=== PATIENT | female | born 1995 | race Caucasian/White ===

== ENCOUNTER → 2017-05-11 | Outpatient (REF) | payer OTHER ==
[2017-05-11 15:48] LABS: CHLAMYDIA DNA AMPLIFICATION NEGATIVE (NEGATIVE); GC DNA AMPLIFICATION NEGATIVE (NEGATIVE)
== END ==
LOC: M SFHCWAGY 12:02
DX: N93.0 Postcoital and contact bleeding (principal); N92.6 Irregular menstruation, unspecified; Z12.4 Encounter for screening for malignant neoplasm of cervix

== ENCOUNTER → 2017-08-23 | Outpatient (REF) | payer OTHER ==
[2017-08-23 21:18] LABS: CHLAMYDIA DNA AMPLIFICATION NEGATIVE (NEGATIVE); GC DNA AMPLIFICATION NEGATIVE (NEGATIVE)
== END ==
LOC: M SFHCWAGY 17:11
DX: R10.32 Left lower quadrant pain (principal)
CPT/HCPCS: 87591

== ENCOUNTER → 2017-12-27 | Outpatient (CLI) | payer OTHER ==
[2017-12-27 13:41] LABS: BASO % 0.3 % (0.0-1.0); EOS # 0.1 10^3/uL (0.0-0.50); EOS % 1.5 % (0.0-3.0); HEMATOCRIT 38.5 % (36.0-47.0); HEMOGLOBIN 13.3 g/dl (12.0-15.5); IMMATURE GRANULOCYTE % 0.2 % (0-3.0); LYMPH # 1.8 10^3/uL (1.5-6.5); MEAN CORPUSCULAR HEMOGLOBIN 30.6 pg (27.0-33.0); MEAN CORPUSCULAR HGB CONC 34.5 g/dl (32.0-36.5); MEAN CORPUSCULAR VOLUME 88.7 fl (80.0-96.0); MONO # 0.5 10^3/uL (0.0-0.8); MONO % 7.4 % (0.0-5.0); NEUTROPHILS # 3.7 10^3/uL (1.8-7.7); NEUTROPHILS % 60.6 % (36.0-66.0); PLATELET COUNT, AUTOMATED 300 10^3/uL (150-450); RED BLOOD COUNT 4.34 10^6/uL (4.00-5.40); RED CELL DISTRIBUTION WIDTH 11.9 % (11.5-14.5); WHITE BLOOD COUNT 6.1 10^3/uL (4.0-10.0)
[2017-12-27 14:32] LABS: FREE T4 1.05 NG/DL (0.76-1.46); HBsAg Prenatal NEGATIVE (NEGATIVE); RUBELLA IgG QUALITATIVE IMMUNE (IMMUNE); TOTAL 25(OH) VITAMIN D 14.8 NG/ML (30.0-100.0)
[2017-12-27 14:38] LABS: HEPATITIS C VIRUS ABY INDEX < 0.0 INDEX (<0.8)
[2017-12-27 14:39] LABS: HIV 1&2 SCREEN CENTAUR NEGATIVE (NEGATIVE)
== END ==
LOC: M SMT 10:35
DX: Z36.89 Encounter for other specified antenatal screening (principal)
CPT/HCPCS: 84443

== ENCOUNTER 2018-01-17 09:29 | Emergency (ER) | payer OTHER ==
[2018-01-17 10:04] LABS: BASO % 0.4 % (0.0-1.0); EOS # 0.1 10^3/uL (0.0-0.50); EOS % 1.1 % (0.0-3.0); HEMATOCRIT 38.1 % (36.0-47.0); HEMOGLOBIN 13.4 g/dl (12.0-15.5); IMMATURE GRANULOCYTE % 0.2 % (0-3.0); LYMPH # 2.2 10^3/uL (1.5-6.5); MEAN CORPUSCULAR HEMOGLOBIN 31.4 pg (27.0-33.0); MEAN CORPUSCULAR HGB CONC 35.2 g/dl (32.0-36.5); MEAN CORPUSCULAR VOLUME 89.2 fl (80.0-96.0); MONO # 0.5 10^3/uL (0.0-0.8); NEUTROPHILS # 5.2 10^3/uL (1.8-7.7); NEUTROPHILS % 65.3 % (36.0-66.0); PLATELET COUNT, AUTOMATED 311 10^3/uL (150-450); RED BLOOD COUNT 4.27 10^6/uL (4.00-5.40); RED CELL DISTRIBUTION WIDTH 12.1 % (11.5-14.5)
[2018-01-17 10:51] LABS: ANION GAP 6 MEQ/L (8-16); BLOOD UREA NITROGEN 9 MG/DL (7-18); CALCIUM LEVEL 8.9 MG/DL (8.5-10.1); CARBON DIOXIDE LEVEL 26 MEQ/L (21-32); CHLORIDE LEVEL 106 MEQ/L (98-107); CREATININE FOR GFR 0.63 MG/DL (0.55-1.30); GLOMERULAR FILTRATION RATE > 60.0 (>60); GLUCOSE, FASTING 87 MG/DL (70-100); HCG, SERUM QUANTITATIVE 4948 MIU/ML; POTASSIUM SERUM 3.9 MEQ/L (3.5-5.1); SODIUM LEVEL 138 MEQ/L (136-145)
[2018-01-17 11:29] LABS: APPEARANCE, URINE HAZY (CLEAR); BACTERIA, URINE AUTO 1+ (NEGATIVE); BILIRUBIN, URINE AUTO NEGATIVE (NEGATIVE); BLOOD, URINE BLOOD 3+ (NEGATIVE); COLOR, URINE YELLOW (YELLOW); GLUCOSE, URINE (UA) AUTO NEGATIVE (NEGATIVE); KETONE, URINE AUTO 1+ mg/dL (NEGATIVE); LEUKOCYTE ESTERASE, URINE AUTO NEGATIVE (NEGATIVE); MUCUS, URINE SMALL (NEGATIVE); NITRITE, URINE AUTO NEGATIVE (NEGATIVE); PROTEIN, URINE AUTO 1+ mg/dL (NEGATIVE); RBC, URINE AUTO 139 /HPF (0-3); SPECIFIC GRAVITY URINE AUTO 1.027 (1.002-1.035); SQUAMOUS EPITHELIAL CELL UR AU 2 /HPF (0-6); WBC, URINE AUTO 6 /HPF (0-3)
== END 2018-01-17 12:30 | disposition home or self-care (01) ==
LOC: M ED 09:29
DX: O20.0 Threatened abortion (principal); Z3A.09 9 weeks gestation of pregnancy; O99.341 Other mental disorders complicating pregnancy, first trimester; F33.9 Major depressive disorder, recurrent, unspecified; F41.9 Anxiety disorder, unspecified; Z88.0 Allergy status to penicillin; O99.331 Smoking (tobacco) complicating pregnancy, first trimester; F17.210 Nicotine dependence, cigarettes, uncomplicated
CPT/HCPCS: 76801

== ENCOUNTER 2018-01-19 19:49 | Emergency (ER) | payer OTHER ==
[2018-01-19 21:26] LABS: BASO % 0.2 % (0.0-1.0); EOS # 0.1 10^3/uL (0.0-0.50); EOS % 0.7 % (0.0-3.0); HEMATOCRIT 36.6 % (36.0-47.0); HEMOGLOBIN 12.7 g/dl (12.0-15.5); IMMATURE GRANULOCYTE % 0.4 % (0-3.0); LYMPH # 1.1 10^3/uL (1.5-6.5); LYMPH % 10.6 % (24.0-44.0); MEAN CORPUSCULAR HEMOGLOBIN 30.8 pg (27.0-33.0); MEAN CORPUSCULAR HGB CONC 34.7 g/dl (32.0-36.5); MEAN CORPUSCULAR VOLUME 88.6 fl (80.0-96.0); MONO # 0.6 10^3/uL (0.0-0.8); MONO % 5.4 % (0.0-5.0); NEUTROPHILS # 8.8 10^3/uL (1.8-7.7); NEUTROPHILS % 82.7 % (36.0-66.0); PLATELET COUNT, AUTOMATED 248 10^3/uL (150-450); RED BLOOD COUNT 4.13 10^6/uL (4.00-5.40); RED CELL DISTRIBUTION WIDTH 12.1 % (11.5-14.5); WHITE BLOOD COUNT 10.6 10^3/uL (4.0-10.0)
[2018-01-19 22:06] LABS: ANION GAP 8 MEQ/L (8-16); BLOOD UREA NITROGEN 7 MG/DL (7-18); CALCIUM LEVEL 8.2 MG/DL (8.5-10.1); CARBON DIOXIDE LEVEL 24 MEQ/L (21-32); CHLORIDE LEVEL 109 MEQ/L (98-107); CREATININE FOR GFR 0.58 MG/DL (0.55-1.30); GLOMERULAR FILTRATION RATE > 60.0 (>60); GLUCOSE, FASTING 89 MG/DL (70-100); HCG, SERUM QUANTITATIVE 1574 MIU/ML; POTASSIUM SERUM 3.9 MEQ/L (3.5-5.1); SODIUM LEVEL 141 MEQ/L (136-145)
[2018-01-19 23:15] LABS: CHLAMYDIA DNA AMPLIFICATION NEGATIVE (NEGATIVE); GC DNA AMPLIFICATION NEGATIVE (NEGATIVE)
== END 2018-01-19 23:13 | disposition home or self-care (01) ==
LOC: M ED 19:49
DX: O03.4 Incomplete spontaneous abortion without complication (principal); O99.341 Other mental disorders complicating pregnancy, first trimester; F41.9 Anxiety disorder, unspecified; F32.9 Major depressive disorder, single episode, unspecified; O99.331 Smoking (tobacco) complicating pregnancy, first trimester; F17.210 Nicotine dependence, cigarettes, uncomplicated; Z88.0 Allergy status to penicillin
CPT/HCPCS: 76801

== ENCOUNTER → 2018-01-25 | Outpatient (CLI) | payer OTHER ==
[2018-01-25 19:21] LABS: HCG, SERUM QUANTITATIVE 141 MIU/ML
== END ==
LOC: M SMT 10:10
DX: O03.9 Complete or unspecified spontaneous abortion without complication (principal)
CPT/HCPCS: 84702

== ENCOUNTER → 2018-02-02 | Outpatient (CLI) | payer OTHER ==
[2018-02-02 14:41] LABS: HCG, SERUM QUANTITATIVE 28 MIU/ML
== END ==
LOC: M SMT 11:19
DX: O03.9 Complete or unspecified spontaneous abortion without complication (principal)
CPT/HCPCS: 84702

== ENCOUNTER → 2018-06-01 | Outpatient (REF) | payer OTHER ==
[2018-06-04 14:43] LABS: HPV HYBRID CAPTURE II Negative (Negative)
== END ==
LOC: M LAB REF 13:39
PROVIDERS: ATTEND Advanced Practice Midwife
DX: Z12.4 Encounter for screening for malignant neoplasm of cervix (principal)

== ENCOUNTER → 2018-06-01 | Outpatient (REF) | payer OTHER ==
[2018-06-01 16:43] LABS: CHLAMYDIA DNA AMPLIFICATION NEGATIVE (NEGATIVE); GC DNA AMPLIFICATION NEGATIVE (NEGATIVE)
== END ==
LOC: M LAB REF 13:15
PROVIDERS: ATTEND Advanced Practice Midwife
DX: Z11.3 Encounter for screening for infections with a predominantly sexual mode of transmission (principal)

== ENCOUNTER → 2018-09-07 | Outpatient (CLI) | payer OTHER ==
[2018-09-07 20:07] LABS: HCG, SERUM QUALITATIVE NEGATIVE (NEGATIVE)
== END ==
LOC: M SMT 15:53
PROVIDERS: ATTEND Advanced Practice Midwife
DX: N91.1 Secondary amenorrhea (principal)

== ENCOUNTER → 2019-01-26 | Outpatient (CLI) | payer OTHER ==
[2019-01-27 10:27] LABS: HEPATITIS B SURFACE ANTIGEN NEGATIVE (NEGATIVE)
[2019-01-27 10:52] LABS: HEPATITIS C VIRUS ABY INDEX 0.1 INDEX (<0.8)
[2019-01-27 10:53] LABS: HEPATITIS B CORE ANTIBODY IGM NEGATIVE (NEGATIVE); HIV 1&2 SCREEN CENTAUR NEGATIVE (NEGATIVE)
[2019-01-27 10:55] LABS: HEPATITIS A ANTIBODY IGM NEGATIVE (NEGATIVE)
[2019-01-27 13:31] LABS: CHLAMYDIA DNA AMPLIFICATION NEGATIVE (NEGATIVE); GC DNA AMPLIFICATION NEGATIVE (NEGATIVE)
== END ==
LOC: M PLALAB 16:01
PROVIDERS: ATTEND Advanced Practice Midwife
DX: Z11.3 Encounter for screening for infections with a predominantly sexual mode of transmission (principal)

== ENCOUNTER → 2019-02-01 | Outpatient (CLI) | payer OTHER ==
--- NOTE | 2019-02-01 14:50 | REP ---
PELVIC ULTRASOUND: Real-time sonographic evaluation of the pelvis is performed utilizing transabdominal and endovaginal technique. The bladder measures 9.2 x 8.7 x 5.6 cm. Uterus measures 7.8 x 3.5 x 4.1 cm. Endometrial thickness is 10 mm with no endometrial fluid collection. Right ovary measures 2.6 x 3.2 x 3.9 cm and left ovary 3.2 x 2.1 x 3.0 cm. Thick-walled cystic structure in the right ovary measures 1.6 cm in maximum diameter compatible with a dominant complex follicle. No torsion is seen of either ovary with duplex Doppler evaluation. There is no other evidence of adnexal mass. Trace physiologic free fluid is seen. IMPRESSION: Endometrial thickness 10 mm with no endometrial fluid collection. Complex dominant follicle right ovary 1.6 cm in diameter. No other significant finding. Unreviewed
--- NOTE | 2019-02-01 15:01 | REP ---
ULTRASOUND RIGHT BREAST: HISTORY: Palpable lump 12-o'clock to 1-o'clock. Real-time sonographic evaluation of the right breast performed in the region of 12-o'clock to 1-o'clock at the site of the reported palpable abnormality. There is dense fibroglandular tissue in this region without a discrete cystic or solid mass. IMPRESSION: ACR 2 benign. No cystic or solid mass identified in the region of the palpable lump right breast between 12-o'clock and 1-o'clock. Clinical correlation and followup is recommended. Unreviewed
== END ==
LOC: M RAD 13:21
PROVIDERS: ATTEND Advanced Practice Midwife
DX: N60.01 Solitary cyst of right breast (principal); N92.6 Irregular menstruation, unspecified

== ENCOUNTER → 2019-02-23 | Outpatient (CLI) | payer OTHER | LOC: M RAD 13:32 | PROVIDERS: ATTEND Surgery | DX: Z53.9 Procedure and treatment not carried out, unspecified reason (principal) ==

== ENCOUNTER → 2019-03-01 | Outpatient (CLI) | payer OTHER ==
--- NOTE | 2019-03-02 11:53 | REP ---
Digital diagnostic unilateral right breast mammography with CAD, 3-D tomography, and focused right breast sonography. History: Lump in the right breast, possible lump in the right axilla. No comparison mammography. Comparison sonography February 01, 2019. Mammographic findings: A skin marker is affixed to the skin at the site of the palpable lump. Routine mammographic views are acquired along with laterally exaggerated craniocaudal view and 3-D tomography. Breast parenchyma is heterogeneously hyperdense in a pattern which may inhibit the sensitivity of mammography. No mass lesion is visible mammographically. No architectural distortion or microcalcification is seen. No worrisome skin change is seen. 3-D tomography images show no additional abnormality. Sonographic findings: The breast is scanned about the 12 o'clock position at the site of the palpable lump. Heterogeneous fibroglandular background echotexture is seen. No cyst or mass is observed. No acoustic shadowing is seen. Right axillary sonography shows two normal-sized lymph nodes measuring 1.3 x 1.2 x 0.7 cm and 0.9 x 0.7 x 0.4 cm. These both have preserved echogenic central hilar fat in this thin cortical margin. No other sonographic finding. Impression: BIRADS 2: BI-RADS/ACR category 2 mammogram. Benign Findings. Clinical followup is advised. This mammogram was interpreted with the aid of an FDA-approved computer-aided detection system. The patient states she had a clinical breast exam in January 2019. The patient letter being requested is m2 dense. This patient's estimated Tyrer-Cuzick lifetime risk assessment for the breast cancer is 22.7 %. Enhanced screening in the form of annual bilateral breast MRI scanning may well be warranted.
== END ==
LOC: M WHC 12:51
PROVIDERS: ATTEND Surgery
DX: R22.31 Localized swelling, mass and lump, right upper limb (principal); N63.10 Unspecified lump in the right breast, unspecified quadrant
CPT/HCPCS: 76642; 77065; G0279

== ENCOUNTER → 2020-05-01 | Outpatient (REF) | payer OTHER ==
[2020-05-01 15:54] LABS: HEMOGLOBIN 14.3 g/dl (12.0-15.5); MEAN CORPUSCULAR HEMOGLOBIN 31.1 pg (27.0-33.0); MEAN CORPUSCULAR VOLUME 91.3 fl (80.0-96.0); PLATELET COUNT, AUTOMATED 341 10^3/uL (150-450); WHITE BLOOD COUNT 7.8 10^3/uL (4.0-10.0)
[2020-05-02 12:08] LABS: HIV 1&2 SCREEN CENTAUR NEGATIVE (NEGATIVE)
[2020-05-03 13:00] LABS: HEPATITIS C VIRUS ABY INDEX < 0.0 INDEX (<0.8)
== END ==
LOC: M PLALAB 10:26
PROVIDERS: ATTEND Advanced Practice Midwife
DX: O99.331 Smoking (tobacco) complicating pregnancy, first trimester (principal); F17.200 Nicotine dependence, unspecified, uncomplicated

== ENCOUNTER → 2020-07-12 | Outpatient (CLI) | payer OTHER ==
--- NOTE | 2020-07-12 14:33 | REP ---
INDICATION: ANATOMY JUHI 12/06/20. COMPARISON: None TECHNIQUE: Transabdominal FINDINGS: Multiple ultrasonographic images of the gravid uterus shows a single living intrauterine gestation in the cephalic presentation. Doppler interrogation of the heart shows a heart rate of 149 beats per minute. Doppler interrogation of the umbilical artery was not obtained. The placenta is posterior not low lying. The cervix measures 5.8 cm in length and is closed. The subjective amniotic fluid volume is within normal limits. anatomical structures seen to be unremarkable are as follows: Thalami, cavum septum pellucidum, cerebellum, cisterna magna, cerebral ventricles, spine, urinary bladder, stomach, upper lower extremities, and left ventricular outflow tract. Structures suboptimally visualized are as follow: Four-chamber heart, kidneys, right ventricular outflow tract, and upper lip. BPD: 4.4 cm 19 weeks 3 days HC: 16.3 cm 19 weeks 0 days AC: 14.0 cm 19 weeks 3 days FL: 2.9 cm 19 weeks 0 days The estimated weight is 279 g. No percentile was calculated by the performing technologist. IMPRESSION: Single living intrauterine gestation as described above with an estimated gestational age of 19 weeks 1 day via composite criteria and an estimated date of delivery of 12/05/2020 by today's exam. No anomalies were detected, however, I recommend a follow-up examination to better visualize those structures not well seen today as described above. <Electronically signed by Philip Bunn > 07/12/20 [id number]
== END ==
LOC: M WHC 12:57
PROVIDERS: ATTEND Advanced Practice Midwife
DX: O99.332 Smoking (tobacco) complicating pregnancy, second trimester (principal); Z3A.19 19 weeks gestation of pregnancy

== ENCOUNTER → 2020-08-15 | Outpatient (CLI) | payer OTHER ==
--- NOTE | 2020-08-15 16:06 | REP ---
INDICATION: F/U ANATOMY. COMPARISON: Comparison study July 12, 2020.. TECHNIQUE: Transabdominal obstetric sonography. FINDINGS: Scanning through the gravid uterus demonstrates a viable single intrauterine gestation in cephalic lie. motion is observed and heart rate is recorded at 147 beats per minute. A posterior placenta is seen, grade 1, without evidence of placenta previa. Closed cervical length is measured at 3.8 cm transabdominally. No extrauterine abnormality is observed. Amniotic fluid is subjectively normal. The following anatomic structures are identified felt to be unremarkable: Four-chamber heart, left and right ventricular outflow tract views, kidneys, and nose and lips. In conjunction with the prior study, anatomic survey is felt to be complete. Biometry chart: BPD 5.9 cm, 24 weeks 2 days Head circumference 21.4 cm, 23 weeks 3 days Abdominal circumference 19.3 cm, 24 weeks 0 days Femur length 4.2 cm, 23 weeks 5 days Humeral length 4.0 cm, 24 weeks 1 day HC AC ratio normal 1.11 Cephalic index normal 0.78 Estimated weight 635 g, 1 lb 6 oz, 41st percentile for 23 weeks 6 days IMPRESSION: Viable single intrauterine gestation at 23 weeks 6 days by today's composite sonographic criteria. JUHI by today's sonography December 06, 2020. No complication identified. Expected gestational age estimate based on known JUHI of 06 December 2020 is 23 weeks 6 days. <Electronically signed by Jasen Larkin > 08/15/20 1202
== END ==
LOC: M WHC 12:22
PROVIDERS: ATTEND Advanced Practice Midwife
DX: O99.332 Smoking (tobacco) complicating pregnancy, second trimester (principal)

== ENCOUNTER 2020-08-17 00:28 | Outpatient (CLI) | payer OTHER ==
[~2020-08-17] VITALS: Ht 162.6 cm; Wt 62.3 kg
[2020-08-17 00:40] VITALS: BP 122/71
--- NOTE | 2020-08-17 01:29 | IPNPDOC ---
Text Note Date of Service The patient was seen on 08/17/20. NOTE Outpatient 24yo JUHI 12/06/2020 presents from [facility] @ 24w0d with complaints of LLQ cramping and discomfort for 2 days. Denies LOF, bleeding. Reports good movement. No apparent distress FH reassuring via doppler No UC on monitor. Abdomen soft, gravid. Tender to palpation over bladder and along left groin SVE LTC, OOP UA at [place] concentrated, turbid Discussed round ligament discomfort, ways to avoid and treatment Urine C&S sent Enc increased hydration to reduce bladder and ligament discomfort. Enc good body mechanics, support belt and shoes. Discharged home. Keep appt next week Felecia Camp CNM Aug 17, 2020 01:29
== END 2020-08-17 01:25 | disposition home or self-care (01) ==
LOC: M LDO 00:28
PROVIDERS: ATTEND Advanced Practice Midwife
DX: O26.892 Other specified pregnancy related conditions, second trimester (principal); Z3A.24 24 weeks gestation of pregnancy; R25.2 Cramp and spasm

== ENCOUNTER 2020-09-10 15:50 | Outpatient (CLI) | payer OTHER ==
[~2020-09-10] VITALS: Ht 162.6 cm; Wt 64.3 kg
[2020-09-10] MEDS ORDERED: ACET-907 PO (16:05)
[2020-09-10 16:08] VITALS: BP 107/64
[2020-09-10 16:47] VITALS: BP 130/75
--- NOTE | 2020-09-10 17:43 | IPNPDOC ---
Text Note Date of Service The patient was seen on 09/10/20. NOTE S: 24 yo female at 27 4/7 weeks by 8 week ultrasound presents with c/o LLQ pain intermittently for 1 day. no bleeding. good movement. O: AVSS NAD Abd: NT, gravid, soft FHT: Cat. I toco: irregular, mild SVE cx: L/C/P A/P 24 yo female at 27 4/7 weeks gestation with ligament pain, no evidence of labor Pt reassured recommended oral hydration, pelvic rest f-u office as scheduled. VS,Fishbone, I+O VS, Fishbone, I+O Vital Signs Date Time Temp Pulse Resp B/P (MAP) Pulse Ox O2 Delivery O2 Flow Rate FiO2 09/10/20 16:08 97.4 88 107/64 (78) PRAVIN STALEY MD Sep 10, 2020 17:43
[2020-09-10 17:44] VITALS: BP 128/77
== END 2020-09-10 17:46 | disposition home or self-care (01) ==
LOC: M LDO 15:50
PROVIDERS: ATTEND Specialist
DX: O26.892 Other specified pregnancy related conditions, second trimester (principal); R10.32 Left lower quadrant pain; Z3A.27 27 weeks gestation of pregnancy; Z88.0 Allergy status to penicillin

== ENCOUNTER 2020-09-17 13:18 | Outpatient (CLI) | payer OTHER ==
[~2020-09-17] VITALS: Ht 162.6 cm; Wt 66.0 kg
[~2020-09-17 13:18] MED LIST: ACET-907 PO
[2020-09-17 13:34] VITALS: BP 118/66
[2020-09-17 13:51] VITALS: BP 103/58
--- NOTE | 2020-09-17 14:16 | IPNPDOC ---
Obstetrical Progress Note Date of Service Sep 17, 2020 Subjective 24-year-old -0-1-0 at 28+4 weeks gestation. Came in with concerns of decreased movement over the past 24 hours. She denies any vaginal bleeding loss of fluid or uterine contractions. Since being evaluated in triage she has now been feeling movement on a frequent basis. course complicated by anxiety/depression/bipolar disorder, formerly on Prozac 20 mg. She is also a smoker. No changes to her history see record Vitals: Normotensive normal heart rate afebrile Abdomen soft nontender nondistended uterine fundal height is consistent with dates and nontender Extremities nonedematous nontender Ultrasound limited: Max vertical pocket 5.3 cm, cephalic presentation, + movement EFM: Category 1, reactive, no decelerations, moderate variability present [place]: No contractions detected A/P: 24-year-old -0-1-0 at 28+4 weeks gestation. Reassuring modified BPP. Reassuring maternal status. -Routine third trimester precautions were reviewed -Follow-up in the office as scheduled Rachel Booker DO Objective Vital Signs Date Time Temp Pulse Resp B/P (MAP) Pulse Ox O2 Delivery O2 Flow Rate FiO2 09/17/20 13:34 97.6 142 20 118/66 (83) GLENN BOOKER DO Sep 17, 2020 14:16
== END 2020-09-17 14:10 | disposition home or self-care (01) ==
LOC: M LDO 13:18
PROVIDERS: ATTEND Obstetrics & Gynecology
DX: O36.8130 Decreased fetal movements, third trimester, not applicable or unspecified (principal); Z3A.28 28 weeks gestation of pregnancy; O99.333 Smoking (tobacco) complicating pregnancy, third trimester; F17.210 Nicotine dependence, cigarettes, uncomplicated; O99.343 Other mental disorders complicating pregnancy, third trimester; F41.9 Anxiety disorder, unspecified; F31.9 Bipolar disorder, unspecified; Z88.0 Allergy status to penicillin

== ENCOUNTER → 2020-09-19 | Outpatient (CLI) | payer OTHER ==
[2020-09-19 17:38] LABS: HEMATOCRIT 37.6 % (36.0-47.0); HEMOGLOBIN 12.2 g/dl (12.0-15.5); MEAN CORPUSCULAR HEMOGLOBIN 31.6 pg (27.0-33.0); MEAN CORPUSCULAR HGB CONC 32.4 g/dl (32.0-36.5); MEAN CORPUSCULAR VOLUME 97.4 fl (80.0-96.0); PLATELET COUNT, AUTOMATED 410 10^3/uL (150-450); RED BLOOD COUNT 3.86 10^6/uL (4.00-5.40); WHITE BLOOD COUNT 11.2 10^3/uL (4.0-10.0)
== END ==
LOC: M PLALAB 13:32
PROVIDERS: ATTEND Advanced Practice Midwife
DX: O99.332 Smoking (tobacco) complicating pregnancy, second trimester (principal); Z3A.00 Weeks of gestation of pregnancy not specified

== ENCOUNTER → 2020-11-19 | Outpatient (REF) | payer OTHER | LOC: M SFHCWAGY 13:11 | PROVIDERS: ATTEND Advanced Practice Midwife | DX: Z34.83 Encounter for supervision of other normal pregnancy, third trimester (principal) ==

== ENCOUNTER → 2021-05-08 | Outpatient (REF) | payer OTHER ==
[~2021-05-08] MED LIST changes: +IBUP80TA PO; +PERCOCET PO
== END ==
LOC: M SFHCWAGY 16:57
PROVIDERS: ATTEND Obstetrics & Gynecology
DX: Z12.4 Encounter for screening for malignant neoplasm of cervix (principal)

== ENCOUNTER → 2021-09-09 | Outpatient (CLI) | payer OTHER ==
[2021-09-09 15:38] LABS: HEMATOCRIT 39.3 % (36.0-47.0); HEMOGLOBIN 13.1 g/dl (12.0-15.5); MEAN CORPUSCULAR HEMOGLOBIN 29.4 pg (27.0-33.0); MEAN CORPUSCULAR HGB CONC 33.3 g/dl (32.0-36.5); MEAN CORPUSCULAR VOLUME 88.1 fl (80.0-96.0); PLATELET COUNT, AUTOMATED 374 10^3/uL (150-450); RED BLOOD COUNT 4.46 10^6/uL (4.00-5.40); WHITE BLOOD COUNT 8.8 10^3/uL (4.0-10.0)
[2021-09-09 16:38] LABS: HEPATITIS C VIRUS ABY INDEX 0.1 INDEX (<0.8); HIV 1&2 SCREEN CENTAUR NEGATIVE (NEGATIVE)
[2021-09-09 17:14] LABS: GC DNA AMPLIFICATION NEGATIVE (NEGATIVE)
== END ==
LOC: M PLALAB 13:36
PROVIDERS: ATTEND Advanced Practice Midwife
DX: Z34.91 Encounter for supervision of normal pregnancy, unspecified, first trimester (principal)

== ENCOUNTER 2021-11-07 17:16 | Outpatient (CLI) | payer OTHER ==
[~2021-11-07] VITALS: Ht 162.6 cm; Wt 57.0 kg
[2021-11-07] MEDS ORDERED: LR 1,000 ML IV SCH (17:20)
[2021-11-07] MEDS ORDERED: PROMETHAZINE 25MG/ML 1ML VIAL IV PRN (17:20)
[2021-11-07] MEDS ORDERED: LACTATED RINGER'S 1000 ML IV STA (17:20)
[2021-11-07 17:28] VITALS: BP 95/55
[2021-11-07] MEDS ORDERED: HOME MED LIST COMPLETE! XX SCH (17:45)
[2021-11-07 17:54] LABS: HEMATOCRIT 32.6 % (36.0-47.0); MEAN CORPUSCULAR HEMOGLOBIN 30.8 pg (27.0-33.0); MEAN CORPUSCULAR HGB CONC 33.7 g/dl (32.0-36.5); MEAN CORPUSCULAR VOLUME 91.3 fl (80.0-96.0); PLATELET COUNT, AUTOMATED 263 10^3/uL (150-450); RED BLOOD COUNT 3.57 10^6/uL (4.00-5.40); WHITE BLOOD COUNT 5.1 10^3/uL (4.0-10.0)
[2021-11-07 18:42] VITALS: BP 99/63
[2021-11-07 19:35] VITALS: BP 140/82
[2021-11-07 20:58] VITALS: BP 107/58
== END 2021-11-07 21:01 | disposition home or self-care (01) ==
LOC: M LDO 17:16
PROVIDERS: ATTEND Obstetrics & Gynecology
DX: O21.8 Other vomiting complicating pregnancy (principal); O98.512 Other viral diseases complicating pregnancy, second trimester; U07.1 COVID-19; Z3A.19 19 weeks gestation of pregnancy
CPT/HCPCS: 59025; 85027; 87635; 96374; J2550

== ENCOUNTER → 2021-12-19 | Outpatient (CLI) | payer BC, MEDICAID | LOC: M WHC 14:53 | PROVIDERS: ATTEND Obstetrics & Gynecology | DX: O34.211 Maternal care for low transverse scar from previous cesarean delivery (principal) ==

== ENCOUNTER → 2022-01-07 | Outpatient (CLI) | payer BC, OTHER ==
[2022-01-07 14:55] LABS: HEMOGLOBIN 12.1 g/dl (12.0-15.5); MEAN CORPUSCULAR HEMOGLOBIN 31.5 pg (27.0-33.0); MEAN CORPUSCULAR HGB CONC 32.7 g/dl (32.0-36.5); MEAN CORPUSCULAR VOLUME 96.4 fl (80.0-96.0); PLATELET COUNT, AUTOMATED 357 10^3/uL (150-450); RED BLOOD COUNT 3.84 10^6/uL (4.00-5.40); WHITE BLOOD COUNT 6.9 10^3/uL (4.0-10.0)
[2022-01-07 17:20] LABS: GC DNA AMPLIFICATION NEGATIVE (NEGATIVE)
== END ==
LOC: M PLALAB 10:21
PROVIDERS: ATTEND Obstetrics & Gynecology
DX: O34.211 Maternal care for low transverse scar from previous cesarean delivery (principal); Z3A.00 Weeks of gestation of pregnancy not specified

== ENCOUNTER 2022-01-27 21:32 | Outpatient (CLI) | payer BC, MEDICAID ==
[~2022-01-27] VITALS: Ht 162.6 cm; Wt 60.6 kg
[2022-01-27 21:50] VITALS: BP 101/66
[2022-01-27] MEDS ORDERED: LACTATED RINGER'S 1000 ML IV STA (21:57)
[2022-01-27] MEDS ORDERED: LR 1,000 ML IV SCH (22:00)
[2022-01-27] MEDS ORDERED: ONDANSETRON 4MG 2ML VIAL IV PRN (22:15)
[2022-01-27 22:28] LABS: HEMATOCRIT 37.4 % (36.0-47.0); HEMOGLOBIN 12.5 g/dl (12.0-15.5); MEAN CORPUSCULAR HEMOGLOBIN 30.9 pg (27.0-33.0); MEAN CORPUSCULAR HGB CONC 33.4 g/dl (32.0-36.5); MEAN CORPUSCULAR VOLUME 92.6 fl (80.0-96.0); PLATELET COUNT, AUTOMATED 359 10^3/uL (150-450); RED BLOOD COUNT 4.04 10^6/uL (4.00-5.40)
[2022-01-27 22:50] LABS: LIPASE 30 U/L (12-53)
[2022-01-27 22:52] LABS: AMYLASE 88 U/L (30-118)
[2022-01-27 22:57] LABS: ALKALINE PHOSPHATASE 141 U/L (46-116); ALT/SGPT < 9 U/L (7.0-40); AST/SGOT 10 U/L (<34); BILIRUBIN,TOTAL 0.6 MG/DL (0.3-1.2); BLOOD UREA NITROGEN 7 MG/DL (9-23); CARBON DIOXIDE LEVEL 18 MMOL/L (20-31); CHLORIDE LEVEL 104 MMOL/L (98-107); CREATININE FOR GFR 0.52 MG/DL (0.55-1.30); GLOMERULAR FILTRATION RATE > 60.0 (>60); GLUCOSE, FASTING 82 MG/DL (60-100); POTASSIUM SERUM 4.3 MMOL/L (3.5-5.1); SODIUM LEVEL 136 MMOL/L (136-145); TOTAL PROTEIN 6.7 G/DL (5.7-8.2)
[2022-01-28] MEDS ORDERED: ONDA4TAB6 PO (00:52)
== END 2022-01-27 23:27 ==
LOC: M LDO 21:32
PROVIDERS: ATTEND Obstetrics & Gynecology
DX: O99.613 Diseases of the digestive system complicating pregnancy, third trimester (principal); A09 Infectious gastroenteritis and colitis, unspecified; Z3A.31 31 weeks gestation of pregnancy; O34.219 Maternal care for unspecified type scar from previous cesarean delivery
CPT/HCPCS: 59025; 80053; 82150; 83690; 85027; 96374; G0378; G0463; J2405

== ENCOUNTER → 2022-03-05 | Outpatient (REF) | payer BC ==
[~2022-03-05] MED LIST changes: +ONDA4TAB6 PO
== END ==
LOC: M PLALAB 08:52
PROVIDERS: ATTEND Advanced Practice Midwife
DX: Z34.93 Encounter for supervision of normal pregnancy, unspecified, third trimester (principal)

== ENCOUNTER → 2022-03-22 | Outpatient (CLI) | payer BC | LOC: M LABSMTC 11:30 | PROVIDERS: ATTEND Anesthesiology | DX: Z01.812 Encounter for preprocedural laboratory examination (principal); Z11.52 Encounter for screening for COVID-19 ==

== ENCOUNTER 2022-03-24 05:01 | Inpatient (IN) | payer BC ==
[2022-03-24] VITALS (8 sets, daily range): BP systolic 112–151; BP diastolic 56–81
[~2022-03-24] VITALS: Ht 162.6 cm; Wt 63.5 kg
[2022-03-24] MEDS ORDERED: BICITRA 30ML SOLN UDC PO ONE (05:30)
[2022-03-24] MEDS ORDERED: ceFAZolin SOD 2 GM in IV 1 EA IV ONE (05:30)
[2022-03-24] MEDS ORDERED: LR 1,000 ML IV ONE (05:30)
[2022-03-24 05:52] LABS: HEMATOCRIT 35.4 % (36.0-47.0); HEMOGLOBIN 11.7 g/dl (12.0-15.5); MEAN CORPUSCULAR HEMOGLOBIN 29.5 pg (27.0-33.0); MEAN CORPUSCULAR HGB CONC 33.1 g/dl (32.0-36.5); MEAN CORPUSCULAR VOLUME 89.4 fl (80.0-96.0); PLATELET COUNT, AUTOMATED 353 10^3/uL (150-450); RED BLOOD COUNT 3.96 10^6/uL (4.00-5.40); WHITE BLOOD COUNT 8.1 10^3/uL (4.0-10.0)
[2022-03-24] MEDS ORDERED: LR 1,000 ML IV SCH ×2 (06:30→09:10)
[2022-03-24] MEDS ORDERED: PHENYLephrine 500MCG 5ML (100MCG/ML) SYRINGE As Ordered ONE (07:08)
[2022-03-24] MEDS ORDERED: ePHEDrine SULFATE 25 MG/5 ML(5MG/ML) SYRINGE As Ordered ONE (07:08)
[2022-03-24] MEDS ORDERED: MORPHINE PRES-FREE INJ 10 MG/10 ML VIAL As Ordered ONE (07:08)
[2022-03-24] MEDS ORDERED: OXYTOCIN 30UNITS IN 0.9% NaCl 500ML IV BAG As Ordered ONE ×2 (07:09→08:57)
[2022-03-24] MEDS ORDERED: ONDANSETRON 4MG 2ML VIAL As Ordered ONE (08:05)
[2022-03-24] MEDS ORDERED: KETOROLAC 60MG 2ML VIAL As Ordered ONE (08:25)
[2022-03-24] MEDS: DOCUSATE SODIUM 100MG CAPSULE PO SCH ×2 (09:00→21:00)
[2022-03-24] MEDS: PRENATAL VITAMINS CHEWABLE TABLET PO SCH (09:00)
[2022-03-24] MEDS ORDERED: fentaNYL 100 MCG/2 ML INJECTION IV PRN (09:10)
[2022-03-24] MEDS ORDERED: ONDANSETRON 4MG 2ML VIAL IV PRN ×2 (09:10→09:20)
[2022-03-24] MEDS ORDERED: **NOTE PATIENT COMMENT** MISC XX SCH (09:10)
[2022-03-24] MEDS: SLF 3 ML SYR IV SCH ×2 (09:10→17:10)
[2022-03-24] MEDS ORDERED: diphenhydrAMINE 50MG/ML VIAL IV PRN (09:10)
[2022-03-24] MEDS ORDERED: METOCLOPRAMIDE INJ 10MG/2ML VIAL IV PRN (09:10)
[2022-03-24] MEDS ORDERED: oxyCODONE 5MG TAB PO PRN (09:10)
[2022-03-24] MEDS ORDERED: NALOXONE INJ 0.4MG/1ML VIAL IV PRN ×2 (09:10)
[2022-03-24] MEDS ORDERED: PERCOCET 5MG/325MG TAB PO PRN (09:20)
[2022-03-24] MEDS ORDERED: MOM 30ML SUSPENSION UDC PO PRN (09:20)
[2022-03-24] MEDS ORDERED: SIMETHICONE 80MG CHEW TAB PO PRN (09:20)
[2022-03-24] MEDS ORDERED: OXYTOCIN DRIP 30 UNITS in IV 1 EA IV SCH (09:20)
[2022-03-24] MEDS: LR 1,000 ML IV SCH ×2 (09:20→17:30)
[2022-03-24] MEDS ORDERED: RHOGAM 300MCG (1500IU) INJ IM SCH (09:20)
[2022-03-24] MEDS: KETOROLAC 30 MG/ML 1ML VIAL IV SCH ×2 (15:12→21:02)
[2022-03-25] MEDS: SLF 3 ML SYR IV SCH (01:10)
[2022-03-25] MEDS: LR 1,000 ML IV SCH (01:20)
[2022-03-25 02:00] VITALS: BP 113/72
[2022-03-25] MEDS: KETOROLAC 30 MG/ML 1ML VIAL IV SCH (03:24)
[2022-03-25 06:00] VITALS: BP 115/68
[2022-03-25 07:27] LABS: HEMATOCRIT 29.9 % (36.0-47.0); MEAN CORPUSCULAR HEMOGLOBIN 29.7 pg (27.0-33.0); MEAN CORPUSCULAR HGB CONC 32.1 g/dl (32.0-36.5); MEAN CORPUSCULAR VOLUME 92.6 fl (80.0-96.0); PLATELET COUNT, AUTOMATED 289 10^3/uL (150-450); RED BLOOD COUNT 3.23 10^6/uL (4.00-5.40); WHITE BLOOD COUNT 8.9 10^3/uL (4.0-10.0)
[2022-03-25 07:42] LABS: HEMOGLOBIN 9.6 g/dl (12.0-15.5)
[2022-03-25 10:00] VITALS: BP 123/61
[2022-03-25] MEDS: PRENATAL VITAMINS CHEWABLE TABLET PO SCH (10:53)
[2022-03-25] MEDS: DOCUSATE SODIUM 100MG CAPSULE PO SCH ×2 (10:53→20:53)
[2022-03-25] MEDS: IBUPROFEN 800 MG TAB PO SCH ×2 (10:54→18:32)
[2022-03-25] MEDS: PERCOCET 5MG/325MG TAB PO PRN ×2 (12:25→19:41)
[2022-03-25 14:00] VITALS: BP 129/70
[2022-03-25] MEDS ORDERED: COLA100C5 PO (16:13)
[2022-03-25] MEDS ORDERED: IBUP80TA PO (16:13)
[2022-03-25] MEDS ORDERED: PERCOCET PO (16:13)
[2022-03-25 18:00] VITALS: BP 122/69
[2022-03-25 22:00] VITALS: BP_SYST 123; BP_SYST 136; BP_DIAS 59; BP_DIAS 66
[2022-03-26 02:00] VITALS: BP 133/67
[2022-03-26] MEDS ORDERED: IBUPROFEN 800 MG TAB As Ordered ONE (03:24)
[2022-03-26] MEDS: IBUPROFEN 800 MG TAB PO SCH (04:53)
[2022-03-26 05:30] VITALS: BP 124/68
[2022-03-26] MEDS ORDERED: PERCOCET 5MG/325MG TAB As Ordered ONE (06:00)
[2022-03-26] MEDS: PERCOCET 5MG/325MG TAB PO PRN (06:16)
[2022-03-26] MEDS ORDERED: MEASLES,MUMPS,RUBELLA VACCINE INJ (MMR-II) SC.IMMUN ONE (09:00)
[2022-03-26] MEDS: DOCUSATE SODIUM 100MG CAPSULE PO SCH (10:00)
[2022-03-26] MEDS: PRENATAL VITAMINS CHEWABLE TABLET PO SCH (10:00)
== END 2022-03-26 12:39 | disposition home or self-care (01) | DRG 540 ==
LOC: M LDI 05:01 → M OBS 10:54
PROVIDERS: ADMIT Obstetrics & Gynecology; ATTEND Obstetrics & Gynecology
PROC: 10D00Z1 Extraction of Products of Conception, Low, Open Approach (ICD-10-PCS; principal; 2022-03-24)
DX: O34.211 Maternal care for low transverse scar from previous cesarean delivery (principal); F17.210 Nicotine dependence, cigarettes, uncomplicated; O99.334 Smoking (tobacco) complicating childbirth; Z3A.39 39 weeks gestation of pregnancy; Z37.0 Single live birth

== ENCOUNTER → 2022-08-05 | Outpatient (REF) | payer BC ==
[~2022-08-05] MED LIST changes: +COLA100C5 PO
== END ==
LOC: M SFHCWAGY 09:50
PROVIDERS: ATTEND Obstetrics & Gynecology
DX: Z12.4 Encounter for screening for malignant neoplasm of cervix (principal)

== ENCOUNTER 2024-05-16 10:10 | Day surgery (SDC) | payer BC ==
[~2024-05-16] VITALS: Ht 162.6 cm; Wt 60.1 kg
[~2024-05-16 10:10] MED LIST changes: +ARNU1INH3 INH; +LIDOCAINE 2% 100MG/5ML SDV (FOR ANES.) As Ordered ONE; +NICO1DIS9 TOP; +ONDA-282 PO; -ONDA4TAB6 PO; +ONDANSETRON 4MG 2ML VIAL As Ordered ONE; +ROCURONIUM BROMIDE 50MG/5ML VIAL As Ordered ONE; +SUGAMMADEX SODIUM 500 MG/5 ML VIAL (BRIDION) As Ordered ONE; +VENTAER INH; +propofoL 200 MG/20 ML VIAL As Ordered ONE
[2024-05-16] MEDS ORDERED: LR 1,000 ML IV SCH ×2 (10:45→13:40)
[2024-05-16 11:28] LABS: HEMOGLOBIN 13.9 g/dl (12.0-15.5); MEAN CORPUSCULAR HEMOGLOBIN 29.6 pg (27.0-33.0); MEAN CORPUSCULAR HGB CONC 33.1 g/dl (32.0-36.5); MEAN CORPUSCULAR VOLUME 89.6 fl (80.0-96.0); PLATELET COUNT, AUTOMATED 223 10^3/uL (150-450); RED BLOOD COUNT 4.69 10^6/uL (4.00-5.40)
[2024-05-16] MEDS ORDERED: MIDAZOLAM INJ 2MG/2ML VIAL As Ordered ONE (11:48)
[2024-05-16] MEDS ORDERED: fentaNYL 100 MCG/2 ML INJECTION As Ordered ONE (11:48)
[2024-05-16] MEDS ORDERED: ACETAMINOPHEN 1000MG/100ML IV BAG As Ordered ONE (13:29)
[2024-05-16] MEDS ORDERED: KETOROLAC 30 MG/ML 1ML VIAL As Ordered ONE (13:30)
[2024-05-16] MEDS ORDERED: ePHEDrine SULFATE 25 MG/5 ML(5MG/ML) SYRINGE As Ordered ONE (13:34)
[2024-05-16] MEDS ORDERED: GLYCOPYRROLATE INJ 0.2 MG/ML 2 ML VIAL As Ordered ONE (13:34)
[2024-05-16] MEDS ORDERED: HYDROMORPHONE HCL 0.5 MG/ 0.5 ML SYRINGE IV PRN (13:40)
[2024-05-16] MEDS ORDERED: ONDANSETRON 4MG 2ML VIAL IV PRN (13:40)
[2024-05-16] MEDS ORDERED: fentaNYL 100 MCG/2 ML INJECTION IV PRN (13:40)
[2024-05-16] MEDS ORDERED: oxyCODONE 5MG TAB PO PRN (13:40)
[2024-05-16 16:04] VITALS: BP 106/52; TEMP 97.2; O2SAT 97
== END 2024-05-16 16:07 | disposition home or self-care (01) ==
LOC: M SDC 10:10
PROVIDERS: ATTEND Obstetrics & Gynecology
DX: Z30.2 Encounter for sterilization (principal); J44.89 Other specified chronic obstructive pulmonary disease; Z79.51 Long term (current) use of inhaled steroids; F17.210 Nicotine dependence, cigarettes, uncomplicated; Z79.899 Other long term (current) drug therapy; Z88.0 Allergy status to penicillin
CPT/HCPCS: 36415; 58661; 81025; 85027; 86850; 86900; 86901; 88302; J0131; J0665; J1100; J1596; J1885; J2250; J2405; J3010